=== PATIENT | female | born 1990 | race Caucasian/White ===

== ENCOUNTER → 2016-11-23 | Outpatient (CLI) | payer BC ==
[2016-11-23 13:38] LABS: URINE APPEARANCE CLEAR (CLEAR); URINE BILIRUBIN NEG (NEG); URINE COLOR YELLOW; URINE EPITHELIAL CELL AUTO >30 /lpf (0-5); URINE NITRITE NEG (NEG); URINE PH 5.5 (4.5-7.5); UROBILINOGEN NEG (NEG)
[2016-11-23 13:41] LABS: MANUAL MICROSCOPIC REQUIRED? NO; REVIEW REQ? NO
== END | disposition home or self-care (01) ==
LOC: C.LABSPEC 12:42
PROVIDERS: ATTEND Obstetrics & Gynecology
DX: Z34.91 Encounter for supervision of normal pregnancy, unspecified, first trimester (principal)

== ENCOUNTER → 2016-11-30 | Outpatient (CLI) | payer BC ==
[2016-11-30 14:23] LABS: BASO % 0.1 %; BASO ABS # 0.01 K/uL (0-0.2); COMPLETE YES; EOS % 0.3 %; HEMATOCRIT 39.4 % (37-47); IG% 0.3 %; LYMPH % 23.2 %; LYMPH ABS # 2.13 K/uL (1.2-3.4); MEAN CELL VOLUME 91.2 fL (80-100); MEAN CORPUSCULAR HEMOGLOBIN 32.4 pg (25-34); MEAN CORPUSCULAR HGB CONC 35.5 g/dl (32-36); MEAN PLATELET VOLUME 10.3 fL (7.4-10.4); MONO % 5.7 %; NEUT % 70.4 %; PLATELET COUNT 219 K/uL (130-400); RED BLOOD COUNT 4.32 M/uL (4.2-5.4); WHITE BLOOD COUNT 9.17 K/uL (4.8-10.8)
== END | disposition home or self-care (01) ==
LOC: C.LAB1850 12:52
PROVIDERS: ATTEND Obstetrics & Gynecology
DX: Z34.91 Encounter for supervision of normal pregnancy, unspecified, first trimester (principal)

== ENCOUNTER → 2016-11-30 | Outpatient (CLI) | payer BC ==
[2016-12-02 15:16] LABS: CHLAMYDIA TRACH RNA*** NOT DETECTED (NOT DETECTED); GC (NEIS GONORRHOEAE)RNA** NOT DETECTED (NOT DETECTED)
== END | disposition home or self-care (01) ==
LOC: C.LABSPEC 14:57
PROVIDERS: ATTEND Obstetrics & Gynecology
DX: Z34.91 Encounter for supervision of normal pregnancy, unspecified, first trimester (principal)

== ENCOUNTER → 2016-12-21 | Outpatient (CLI) | payer BC | LOC: C.LAB1850 11:04 | PROVIDERS: ATTEND Obstetrics & Gynecology | DX: Z29.13 Encounter for prophylactic Rho(D) immune globulin (principal); O46.90 Antepartum hemorrhage, unspecified, unspecified trimester; Z3A.00 Weeks of gestation of pregnancy not specified ==

== ENCOUNTER → 2017-01-21 | Outpatient (CLI) | payer BC ==
[2017-01-21 18:33] LABS: GTGD 50 Grams
[2017-01-25 15:14] LABS: AFP CONCENTRATION 28.9 NG/ML; AFP MULTIPLE OF MEDIAN 0.84; AFPTS GESTATIONAL AGE 16.6 WEEKS; AFPTS INSULIN DEP DIABETIC? NO; AFPTS MATERNAL WT 154 LBS; ALPHA-FETOPROTEIN RACE CAUCASIAN=W; ESTRIOL MULTIPLE OF MEDIAN 0.98; HISTORY OF NTD NO; INHIBIN A 153 PG/ML; INHIBIN A MOM 0.93; REPEAT SAMPLE? NO
== END | disposition home or self-care (01) ==
LOC: C.LAB1850 15:49
PROVIDERS: ATTEND Obstetrics & Gynecology
DX: Z34.91 Encounter for supervision of normal pregnancy, unspecified, first trimester (principal)

== ENCOUNTER → 2017-04-15 | Outpatient (CLI) | payer BC ==
[2017-04-15 18:27] LABS: URINE APPEARANCE CLEAR (CLEAR); URINE BILIRUBIN NEG (NEG); URINE COLOR YELLOW; URINE EPITHELIAL CELL AUTO >30 /lpf (0-5); URINE NITRITE NEG (NEG); URINE SPECIFIC GRAVITY 1.023 (1.000-1.030); UROBILINOGEN NEG (NEG)
[2017-04-15 18:29] LABS: MANUAL MICROSCOPIC REQUIRED? NO; REVIEW REQ? NO
== END | disposition home or self-care (01) ==
LOC: C.LABSPEC 17:43
PROVIDERS: ATTEND Obstetrics & Gynecology
DX: Z34.02 Encounter for supervision of normal first pregnancy, second trimester (principal); Z3A.00 Weeks of gestation of pregnancy not specified

== ENCOUNTER → 2017-04-16 | Outpatient (CLI) | payer BC ==
[2017-04-16 16:41] LABS: HEMATOCRIT 34.3 % (37-47)
[2017-04-16 17:07] LABS: GTGD 50 Grams
== END | disposition home or self-care (01) ==
LOC: C.LAB1850 14:15
PROVIDERS: ATTEND Obstetrics & Gynecology
DX: Z34.02 Encounter for supervision of normal first pregnancy, second trimester (principal); Z3A.00 Weeks of gestation of pregnancy not specified

== ENCOUNTER → 2017-06-09 | Outpatient (CLI) | payer BC | END | disposition home or self-care (01) | LOC: C.LABSPEC 17:34 | PROVIDERS: ATTEND Obstetrics & Gynecology | DX: Z34.93 Encounter for supervision of normal pregnancy, unspecified, third trimester (principal) ==

== ENCOUNTER 2017-07-10 05:54 | Inpatient (IN) | payer BC, OTHER ==
[~2017-07-10] VITALS: Ht 162.6 cm; Wt 82.0 kg
[2017-07-10 06:51] LABS: HEMATOCRIT 34.2 % (37-47); MEAN CORPUSCULAR HEMOGLOBIN 33.3 pg (25-34); MEAN CORPUSCULAR HGB CONC 35.1 g/dl (32-36); MEAN PLATELET VOLUME 10.6 fL (7.4-10.4); PLATELET COUNT 135 K/uL (130-400); RED CELL DISTRIBUTION WIDTH CV 13.8 % (11.5-14.5); RED CELL DISTRIBUTION WIDTH SD 47.9 fL (36.4-46.3); WHITE BLOOD COUNT 12.66 K/uL (4.8-10.8)
[2017-07-10] MEDS ORDERED: PRENTAB26 PO (06:54)
[2017-07-10 06:56] VITALS: Ht 162.6 cm; Wt 82.0 kg
[2017-07-10] MEDS ORDERED: COUGH DROP (SUGAR FREE) LOZ 24 LOZ/1 BOX ONE (07:59)
[2017-07-10] MEDS ORDERED: NURSING VERBAL MED ORDER ONE (08:00)
[2017-07-10] MEDS ORDERED: COUGH DROP (SUGAR FREE) LOZ 24 LOZ/1 BOX PO PRN (08:30)
[2017-07-10] MEDS ORDERED: BUTORPHANOL TARTRATE 1 MG/ML VIAL IV ONE (08:45)
[2017-07-10] MEDS ORDERED: EpHEDrine SULFATE INJ 50 MG/ML AMP ONE (09:17)
[2017-07-10] MEDS ORDERED: FENTANYL CITRATE INJ 50 MCG/1 ML 2 ML VIAL ONE (09:17)
[2017-07-10] MEDS ORDERED: FENTANYL 2MCG/ML ROPIV 1.25MG/ML 100ML BAG EPI ONE (09:17)
[2017-07-10] MEDS ORDERED: BUPIVACAINE 0.25% 30 ML VIAL ONE (09:17)
[2017-07-10] MEDS: LACTATED RINGER'S 1000ML 1,000 ML IV SCH ×4 (10:00→23:40)
[2017-07-10] MEDS ORDERED: CITRIC ACID/SODIUM CITRATE 15 ML UDC ONE (10:30)
[2017-07-10] MEDS ORDERED: NALOXONE HCL INJ 1 MG in SODIUM CHLORIDE 0.9% 1000ML 1,000 ML IV PRN (10:51)
[2017-07-10] MEDS ORDERED: LACTATED RINGER'S 1000ML 500 ML IV PRN ×2 (10:51→17:29)
[2017-07-10] MEDS ORDERED: DiphenhydrAMINE HCL 50 MG/ML VIAL IV PRN (11:00)
[2017-07-10] MEDS ORDERED: ONDANSETRON INJ 2 MG/ML 2 ML VIAL IV PRN (11:00)
[2017-07-10] MEDS ORDERED: EpHEDrine SULFATE INJ 50 MG/ML AMP IV PRN (11:00)
[2017-07-10] MEDS ORDERED: NALOXONE HCL INJ 0.4 MG/1 ML VIAL/CARP IV PRN (11:00)
[2017-07-10] MEDS ORDERED: NALBUPHINE HCL INJ 10 MG/ML 1ML AMP IV PRN (11:00)
[2017-07-10] MEDS ORDERED: LACTATED RINGER'S 1000ML 1,000 ML IV PRN (11:33)
[2017-07-10] MEDS ORDERED: OXYTOCIN 30 UNITS/500ML NSS IV PRN (17:30)
[2017-07-10] MEDS: FENTANYL 2MCG/ML ROPIV 1.25MG/ML 100ML BAG EPI PRN ×2 (18:37→18:59)
[2017-07-11] MEDS: FENTANYL 2MCG/ML ROPIV 1.25MG/ML 100ML BAG EPI PRN (00:42)
[2017-07-11] MEDS: LACTATED RINGER'S 1000ML 1,000 ML IV SCH (03:49)
[2017-07-11] MEDS ORDERED: LANOLIN OINT EXT PRN (06:15)
[2017-07-11] MEDS ORDERED: SUPERCREAM 0.870 % 15GM JAR EXT PRN (06:15)
[2017-07-11] MEDS ORDERED: BENZOCAINE 20% AER SPR 82.5 GM CAN EXT PRN (06:15)
[2017-07-11] MEDS ORDERED: OXYCODONE/ACETAMINOPHEN 5-325 TAB PO PRN (06:15)
[2017-07-11] MEDS ORDERED: HYDROCORTISONE ACETATE 25 MG SUPP PR PRN (06:15)
[2017-07-11] MEDS ORDERED: OXYTOCIN 30 UNITS/500ML NSS IV PRN (06:15)
--- NOTE | 2017-07-11 08:33 | Anesthesia Procedure Note ---
Anesthesia Epidural Removal Nt Date & Time Jul 11, 2017 at 08:33 Vital Signs Pain Intensity: 0.0 Notes Mental Status: alert / awake / arousable, participated in evaluation Nausea / Vomiting: adequately controlled Pain: adequately controlled Airway Patency, RR, SpO2: stable & adequate BP & HR: stable & adequate Hydration State: stable & adequate Neuraxial Anesthesia: was administered Anesthetic Complications: no major complications apparent, pt satisfied with anesthetic care Epidural: removed without complications, with tip intact
[2017-07-11 09:15] VITALS: BP 113/75; PULSE 90; TEMP 36.9
[2017-07-11] MEDS: DOCUSATE SODIUM 100 MG CAP PO SCH ×2 (09:34→19:52)
[2017-07-11] MEDS: IBUPROFEN 600 MG TAB PO PRN ×2 (09:34→16:53)
--- NOTE | 2017-07-11 10:00 | NUR ---
A; Patient transferred to Level II nursery to see . Patient was transferred via wheelchair.
--- NOTE | 2017-07-11 12:15 | NUR ---
A; Patient was verbally educated on pumping; breast pump and breast pumping kit placed in room. Patient educated to ring after she has finsihed her lunch tray and we will set up pump to start pumping. Patient verbalized understanding and will ring when she is ready to pump.
[2017-07-11 12:34] VITALS: BP 118/77; PULSE 79; TEMP 36.5
--- NOTE | 2017-07-11 13:10 | NUR ---
A; Patient has not rang out; once nursing went back to check hourly rounding patient was found to be sleeping and not interested in pumping at this time.
[2017-07-11 16:50] VITALS: BP 125/74; PULSE 79; TEMP 36.8
[2017-07-11 20:00] VITALS: BP 111/67; PULSE 87; TEMP 36.5
[2017-07-12 00:05] VITALS: BP 108/69; PULSE 82; TEMP 36.7
[2017-07-12] MEDS: IBUPROFEN 600 MG TAB PO PRN ×3 (00:12→14:33)
[2017-07-12 04:15] VITALS: BP 107/72; PULSE 81; TEMP 36.6
[2017-07-12 06:24] LABS: HEMOGLOBIN 8.9 g/dL (12.0-16.0)
[2017-07-12 07:26] VITALS: BP 113/77; PULSE 65; TEMP 36.7
--- NOTE | 2017-07-12 08:20 | Discharge Instructions ---
Discharge Instructions Date of Service Jul 12, 2017. Admission Reason for Admission: LABOR Discharge Discharge Diagnosis / Problem: vaginal delivery Discharge Goals Goal(s): Routine recovery after delivery Medications Continue Dispensed Medications: supercream, dermaplast, tucks Activity Recommendations Activity Limitations: per Instructions/Follow-up section . Instructions / Follow-Up Instructions / Follow-Up ACTIVITY RECOMMENDATIONS: * Gradual return to full activity over the next 2-3 weeks. * No lifting - nothing heavier than baby over the next 2-3 weeks. * Do not engage in vigorous exercise, sexual activity or sports until cleared by your physician. * Do not drive or operate any motorized equipment until cleared by your physician. * You may shower/bathe daily. MEDICATIONS: For discomfort or pain, you may use Acetaminophen (Tylenol), Ibuprofen (Advil), or Naproxen (Aleve) following the package directions. For constipation you may use Colace following the package directions. BREAST CARE: If you are not breast feeding: * Wear a supportive bra 24 hours a day for one to two weeks. * Avoid stimulating your breasts and nipples as much as possible during the first few weeks after delivery. * When taking a shower, have the warm water hit your back, not breasts. * When your breasts feel full, apply ice packs. Usually three to four times a day helps ease the discomfort. * Take a mild pain medication (Tylenol / Motrin) when you are uncomfortable. If breast feeding: * Use breast milk to lubricate nipples. Lansinoh cream may be used for sore nipples. You do not need to remove cream prior to breast feeding. If using a different brand of cream, check the label for directions regarding removal of cream prior to nursing. * Wear a supportive bra. * If having problems with breasts or breast feeding, call a automotive internet sales consultant or your health care provider. EPISIOTOMY CARE: After delivery, if you have an episiotomy (stitches), the following steps will ease discomfort and aid healing. * For the first 24 hours after delivery, place ice packs next to your episiotomy to help reduce swelling. * After the first 24 hour-period, sitz baths, either portable or in the tub, are suggested. A shower with a shower arm sprayed over the episiotomy may be comforting. * Hayley care should be done after each voiding and bowel movement. Squirt warm water from a plastic bottle over the perineum (region of the body between the anus and urinary opening) and pat dry. * Use Dermoplast to ease discomfort. Shake container. [place] directly over the episiotomy. Place a Tucks on a clean sanitary pad next to your episiotomy. SPECIAL CARE INSTRUCTIONS: When you are discharged from the hospital, it is important for you to follow the instructions listed below: * During the first week at home, you should be able to care for yourself and your baby. In addition, the usual light household activities are encouraged. * Limit your activities to the way you feel. Do not try to clean the house or move furniture. Be sensible. * If you actively engage in sports and have done so up until the time of your delivery, you may resume these activities as soon as you feel able. This may take up to one month or even longer. Use good judgment. * Continue to take your vitamins for at least six weeks after the of your baby. * Your diet need not be limited unless you were on a special diet before your delivery. Breast-feeding mothers need around 2500 calories per day and at least 64-80 ounces of fluid per day (8 to 10 glasses). * You should eat foods from the four major food groups. Crash diets or fad diets are to be avoided. Eating lean meats, fresh fruits and vegetables, low-fat dairy products, high fiber foods and a regular exercise program, will help you get back to your pre- weight without putting your health at risk. * Constipation is sometimes a problem after delivery. Take a mild laxative as needed. If breast feeding, Milk of Magnesia is acceptable to use. You may use a suppository or Fleets enema if no episiotomy. * A daily shower or tub bath is suggested. Be sure to thoroughly and gently dry the perineum. * A bloody vaginal discharge will usually continue until around four weeks post . A small amount of bleeding may continue for as long as six weeks. Vaginal discharge changes from the bright red bleeding after delivery to pink then brownish and finally yellowish-pink before becoming white and disappearing. * Bleeding may increase with activity. Your first period may come in 4-8 weeks. If you are breast feeding, your period may be delayed even longer. * [place] (sex) can begin whenever both you and your partner feel comfortable and do not have any form of genital infection. It is recommended that you wait at least six weeks for internal and external healing to occur. If you have questions, please talk to your health care practitioner. A condom should be used to prevent infection and . * Foreplay, gentle intercourse and lubrication is very important the first several times to prevent pain. A water-based lubricant such as K-Y jelly or Astroglide may be used. * If you have RH negative blood and your baby is RH positive, you will receive RHOGAM by injection prior to discharge. The nurse will give you a card to keep with you that has the date and place that you received RHOGAM after delivery. * During your care, you had a Rubella screen done to check for the presence of rubella antibodies in your blood. If your test was negative, you will receive a Rubella vaccine prior to discharge. This vaccine may cause a fever, soreness at the injection site and flu-like symptoms. If these symptoms persist, notify your health care practitioner. is not advised for one month after a Rubella vaccine. * Verbalizes understanding of car seat law as reviewed with patient nursing. * Car Seat hand-out given and reviewed with patient by nursing. * Shaken baby information reviewed with patient by nursing. Call you doctor if: * Heavy bleeding (saturating several pads an hour) or passing clots the size of your fist. * A fever >101 degrees F (38.3 degrees C) on two occasions four hours apart and /or chills. * Unusual pain in the pelvic or vaginal areas. * "Baby Blues" lasting longer than two weeks. If you have any questions or concerns, call your health care practitioner at . FOLLOW UP VISIT: * Please call the office at to schedule a 6 week examination. It is important you keep this appointment. It is important for you to make arrangements for either yearly or twice yearly check-ups thereafter. Current Hospital Diet Patient's current hospital diet: Regular OB Diet Discharge Diet Recommended Diet: Regular OB Diet Pending Studies Studies pending at discharge: no Medical Emergencies . Who to Call and When: Medical Emergencies: If at any time you feel your situation is an emergency, please call 911 immediately. . Non-Emergent Contact Non-Emergency issues call your: Moss Picker . . "Provider Documentation" section prepared by Gopal Roldan. . VTE Core Measure Inpt VTE Proph given/why not?: Treatment not indicated
--- NOTE | 2017-07-12 08:28 | OB/GYN Progress Note ---
AUTOMATION AND CONTROLS SUPERVISOR Progress Note Date of Service Jul 12, 2017. Subjective conversation w/ patient, physical exam, chart review, lab review Ambulation: ambulating normally Voiding: no voiding problems Passing Gas: Yes Diet Tolerance: Regular Diet Lochia: Moderate Feeding Type: Breast Feeding Pain: cramping with feeding Review of Systems Constitutional: No fever, No chills Respiratory: No cough, No shortness of breath Cardiac: No chest pain, No palpitations Abdomen: No pain, No nausea, No vomiting Female : No dysuria Objective Vital Signs Date Time Temp Pulse Resp B/P (MAP) Pulse Ox O2 Delivery O2 Flow Rate FiO2 07/12/17 07:26 36.7 65 16 113/77 (89) Room Air 07/12/17 04:15 36.6 81 20 107/72 (84) Room Air 07/12/17 00:05 Room Air 07/12/17 00:05 36.7 82 18 108/69 (82) Room Air 07/11/17 20:00 36.5 87 18 111/67 (82) Room Air 07/11/17 16:50 Room Air 07/11/17 16:50 36.8 79 20 125/74 (91) Room Air 07/11/17 12:34 36.5 79 16 118/77 (91) 07/11/17 09:15 Room Air 07/11/17 09:15 36.9 90 16 113/75 (88) Physical Exam General Appearance: WELL-APPEARING, WD/WN, NO APPARENT DISTRESS Respiratory/Chest: lungs clear, normal breath sounds Cardiovascular: regular rate, rhythm, no murmur Abdomen: non tender Fundus: Firm, Relation to Umbilicus (1 digit below umbilicus ) Extremities: no calf tenderness Laboratory Results Last 24 Hours Test 07/12/17 05:46 Hemoglobin 8.9 g/dL Hematocrit 26.0 % Assessment and Plan Post- Day Number: 2 Continue Routine Care: 27 yo female delivered on 07/11 5:26 GBS-/O-/RI. Doing well clinically and ready for discharge. Awaiting dispo of baby from peds. Reviewed vitals, stable and WNL. Plan; 1.Continue pp care; encourage ambulation, control pain, monitor bleeding, support Resident Physician Supervision Note: I was present with Dr. Roldan during the history and exam. I discussed the case with the resident and agree with the findings and plan as documented in the note. Any exceptions or clarifications are listed here: PPD#1, doing well. Baby with some difficulties with breathing - will plan to keep patient until tomorrow due to baby's status. Documented By: Meg Hall
[2017-07-12] MEDS: DOCUSATE SODIUM 100 MG CAP PO SCH ×2 (09:17→20:12)
[2017-07-12 16:00] VITALS: BP 120/57; PULSE 73; TEMP 36.7; O2SAT 97
[2017-07-12] MEDS ORDERED: BISACODYL 5 MG TABEC PO SCH (20:00)
--- NOTE | 2017-07-12 20:22 | NUR ---
Met with parents and at 1945 introducing self and offering breast feeding services (hands on as well as education/answering questions). Mother stated she would like to have the latch assessed and will use her call domínguez to assistance with next feeding. Fany Vora RN, CLC
--- NOTE | 2017-07-12 21:45 | NUR ---
Met with parents and infant at 2220 for assistance with breast feeding. Parents described the after senerio and stated they were unable to do skin to skin or breast feed first several hours post because of infant complications following delivery. During my visit, the infant was in deep sleep. Both parents comfirmed previous attempts at breast feeding have not been successful, ( has been sleepy). They were recommended to start using the nipple shield because was not latching well (very sleepy) and mom stated her rt. nipple was inverted. Mom was also pumping and had at least 14cc of transitional milk in 2 syringes (she is one pump before). After listening to both parents describe their experiences and their 's first few hours post delivery and observing their in a deep sleep, suggested as much skin to skin (including father if mom is not available) as possible. Provided a warm L&D blanket. Reviewed sleep/awake states and optimal times to initiate feedings. Encouraged parents they are doing everything right. Suggested they provide patience with their and with skin to skin, let her start to awaken, and self-initiate , (as if starting over). Parents agreed and stated they will continue to offer breast and pump and finger feed breast milk and provide skin to skin maximum possible and observe for awakening and feeding cues. Fany Vora RN, CLC
[2017-07-13 00:50] VITALS: BP 113/76; PULSE 64; TEMP 36.7
[2017-07-13] MEDS: IBUPROFEN 600 MG TAB PO PRN (00:55)
--- NOTE | 2017-07-13 06:01 | OB/GYN Progress Note ---
SUPERINTENDENT TRANSPORTATION Progress Note Date of Service Jul 13, 2017. Subjective conversation w/ patient, physical exam, chart review, lab review Ambulation: ambulating normally Voiding: no voiding problems Passing Gas: Yes Diet Tolerance: Regular Diet Lochia: Moderate Feeding Type: Breast Feeding Pain: moderate pain with feeding Review of Systems Constitutional: No fever, No chills Respiratory: No shortness of breath Cardiac: No chest pain, No palpitations Abdomen: No pain, No nausea, No vomiting Female : No dysuria Objective Vital Signs Date Time Temp Pulse Resp B/P (MAP) Pulse Ox O2 Delivery O2 Flow Rate FiO2 07/13/17 00:50 36.7 64 18 113/76 (88) Room Air 07/13/17 00:50 Room Air 07/12/17 16:00 36.7 73 18 120/57 (78) 97 Room Air 07/12/17 16:00 97 Room Air 07/12/17 07:26 36.7 65 16 113/77 (89) Room Air Physical Exam General Appearance: WELL-APPEARING, WD/WN, NO APPARENT DISTRESS Respiratory/Chest: lungs clear, normal breath sounds Cardiovascular: regular rate, rhythm, no murmur Abdomen: non tender Fundus: Firm Extremities: normal inspection, no pedal edema, no calf tenderness Assessment and Plan Post- Day Number: 2 Continue Routine Care: 27 yo female delivered on 07/11 5:26 GBS-/O-/RI. Doing well clinically and ready for discharge. Reviewed vitals, stable and WNL. Plan; 1.Continue pp care; encourage ambulation, control pain, monitor bleeding, support 2.Provided DC instructions to mother 3.Awaiting dispo of baby from peds, otherwise patient is ready to be discharged Resident Physician Supervision Note: I was present with Dr. Alegre during the history and exam. I discussed the case with the resident and agree with the findings and plan as documented in the note. Any exceptions or clarifications are listed here: [None] Documented By: Ritchie Barney
[2017-07-13] MEDS ORDERED: BISACODYL 10 MG SUPP PR PRN (07:00)
--- NOTE | 2017-07-13 08:01 | DELIVERY SUMMARY ---
DATE OF OPERATION: 07/11/2017 PREDELIVERY DIAGNOSES: 1. A 27-year-old at 41 weeks and 0 day. 2. Spontaneous rupture of membranes. 3. RH negative status. POSTDELIVERY DIAGNOSES: Same. PROCEDURES: Spontaneous vaginal delivery and repair of second-degree perineal laceration. FINDINGS: Viable female with Apgars of 7 and 8. Weight pending. Please see nursery records. Nuchal cord x1. ESTIMATED BLOOD LOSS: 300 mL. DESCRIPTION OF DELIVERY: The patient progressed to complete with epidural anesthesia. Only then allowed the baby to labor down until the patient felt the urge to push. She then pushed for approximately 3 hours and then spontaneously vaginally delivered a viable female from the cephalic presentation. The baby delivered in the left occiput anterior position. Head delivered followed by nuchal cord x1. This was reduced. The anterior shoulder was delivered followed by the posterior shoulder followed by the body. Baby was placed on mother's abdomen, where she was stimulated and dried. The cord was doubly clamped and cut. The baby was immediately handed off to the awaiting pediatrics team, who continued the stimulation. A spontaneous cry was heard. A cord segment was obtained for gases. Cord blood was obtained. Placenta then delivered spontaneously intact with a 3-vessel cord. The uterus became firm. Pitocin was given. The uterus and vagina were swept of all clots and debris. The cervix, vagina and perineum were inspected. A second-degree perineal laceration was noted and repaired in standard fashion with 3-0 Vicryl and additional [id number] sutures of 3-0 Vicryl were used to obtain excellent hemostasis as well as interrupted sutures of 4-0 Vicryl to reapproximate a torn hymenal ring. At the conclusion of the delivery, sponge, instruments and needle counts were correct x2. The mother and baby tolerated the delivery well and the mother recovered in the room in stable and good condition and the baby was taken to the nursery for further evaluation. I attest to the content of the Intraoperative Record and any orders documented therein. Any exception s are noted below.
[2017-07-13] MEDS: DOCUSATE SODIUM 100 MG CAP PO SCH (08:33)
[2017-07-13 12:15] VITALS: BP 138/87; PULSE 81; TEMP 36.6; O2SAT 100
[2017-07-13 13:10] VITALS: BP_DIAS 87; PULSE 81; TEMP 36.6
--- NOTE | 2017-07-13 15:10 | NUR ---
Patient verbalized understanding of discharge instructions. Patient down to lobby in wheelchair with and .
== END 2017-07-13 15:10 | disposition home or self-care (01) | DRG 775 ==
LOC: C.OPB 05:54 → C.LD 05:54 → C.OPB 06:30 → C.OBG 07-11 09:24
PROVIDERS: ADMIT Obstetrics & Gynecology; ATTEND Obstetrics & Gynecology
PROC: 10E0XZZ Delivery of Products of Conception, External Approach (ICD-10-PCS; principal; 2017-07-11)
PROC: 0KQM0ZZ Repair Perineum Muscle, Open Approach (ICD-10-PCS; principal; 2017-07-11)
DX: O70.1 Second degree perineal laceration during delivery (principal); O69.81X0 Labor and delivery complicated by cord around neck, without compression, not applicable or unspecified; O76 Abnormality in fetal heart rate and rhythm complicating labor and delivery; Z3A.40 40 weeks gestation of pregnancy; Z37.0 Single live birth

== ENCOUNTER → 2017-08-17 | Outpatient (CLI) | payer OTHER ==
[~2017-08-17] MED LIST: PRENTAB26 PO
== END | disposition home or self-care (01) ==
LOC: C.PAPS 08:41
PROVIDERS: ATTEND Obstetrics & Gynecology
DX: Z39.2 Encounter for routine postpartum follow-up (principal)

== ENCOUNTER 2020-03-08 11:28 | Inpatient (IN) ==
--- NOTE | 2020-03-08 11:45 | History & Physical Report ---
Date of Service March 08, 2020 Assessment & Plan (1) Post-dates : Abimael Johnson is a 30 y/o who presents for postdates labor induction. O neg. Ab neg. GBS neg. Rubella immune. Labor induction for postdates Vitals reviewed, stable. labs reviewed. Mild leukocytosis 11.11. H/H 13/37.2. Plt 132. - patient doing well - was on IUGR protocol 20-36 wks, but taken off of it. No longer IUGR as of 01/30/20. Otherwise, course benign - LR 125 ml/hr plan: induction via pitocin Rh negative - received rhogam on 12/06/19 plan: may potentially need rhogam depending on baby's blood type Hx Shalom's and non-toxic multinodular goiter - TSH 1.0, wnl on 08/01/19. asymptomatic, not on medications Admission and Anticipated Discharge Date Admission Date: March 08, 2020 History of Present Illness Primary Care Provider: NO PCP Abimael Johnson is a 30 y/o female currently at 41w2d WGA with an SUSAN 02/28/20 as determined by (LMP (certain)) who is here for planned induction for postdate . Her was complicated by IUGR protocol 20-36 weeks, was then taken off of it. No current pain. -N/V, dysuria, low back pain, bleeding, NICOLE, dizziness, vision changes, constipation, diarrhea, calf tenderness. No cough, sorethroat, loss of taste/smell, diarrhea. No UTIs. Last BM this AM. Hx of Shalom's and nontoxic multinodular goiter, denies recent problems, had normal TSH 08/01/19. Not on thyroid medications. No alcohol, tobacco, drug use during . - contractions; - movement; - fluid loss; - bloody show Had regular appointments with OB. Labs: 08/01/19 Blood type: O negative Antibody screen: negative H (today) Hct: 37.2 (today) WBC: 11.11H (today) Plt: 132 (today) Rubella: immune VDRL/RPR: nonreactive Gonorrhea: not detected Chlamydia: not detected HIV: neg HbSAg: neg GBS: negative glucose 1 hour 50 gm load 81 mg/dl Covid: 02/15/20, 02/27/20 negative Other screens: panorama negative Allergies Allergy/AdvReac Type Severity Reaction Status Date / Time No Known Drug Allergies Allergy none Verified 03/08/20 11:30 Home Medications Home Medications Medication Instructions Recorded Confirmed Type prenat.vits,efraín,jix-[id number] 1 tab PO DAILY 07/26/19 03/08/20 History Patient History Medical History (Updated 03/08/20 @ 13:58 by Pablo Burrell MD) Encounter for anatomic survey History of chicken pox History of Shalom thyroiditis Non-toxic multinodular goiter Vaginal ulcer Surgical History S/P tooth extraction Family History Grandmother (Maternal) Diabetes Grandfather (Maternal) Amyotrophic lateral sclerosis Aunt Multiple sclerosis paternal Other Esophageal reflux Social History Smoking Status: Never smoker Hx Alcohol Use: No Hx Substance Use: No Preferred Language: Citizen Of [place] Communication Ability: Effective Beliefs That Will Affect Care: None marital status: marital status details: Remy Johnson (31) [phone] Current Living Situation: Spouse Current Living Situation Comment: spouse and daughter current occupational status: employed 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 Denies breast pain. Denies dysuria. Denies headache or changes in vision. Denies nausea/vomiting. Denies numbness, tingling, weakness. Denies cold or heat intolerance Physical Exam Physical Exam: General: Alert, oriented. No acute distress. Cardiac: Regular rate and rhythm, no murmurs/rubs/gallops. Radial and DP pulses 2+ bilaterally. Respiratory: Clear to auscultation bilaterally, no wheezes/rales/rhonchi. No i ncreased work of breathing. No respiratory distress. Abdomen: Gravid; +FHTs Cervix: Dilation 2-3 cm. Effacement 50% -2 station. Soft. Posterior. EFW: upper 7s kg. Lower Extremities: No lower extremity edema or swelling. No deep calf pain. Jeff's negative bilaterally. Monitoring External Monitor FHT at 11:40. category 1. baseline 135. moderate variability. +Accelerations. No decelerations. No contractions. Resident Activity Tracking Resident Involvement: Resident Care Provided Care Provided: OB Delivery
[2020-03-08] MEDS ORDERED: OXYTOCIN 30 UNITS/500 ML BAG IV PRN ×3 (12:02→20:16)
[2020-03-08 12:31] LABS: Hematocrit (blood only) 37.2 % (37-47); Mean Corpuscular Volume 97.4 fL (80-100); Mean Platelet Volume 10.7 fL (7.4-10.4); Platelet Count 132 K/uL (130-400); RDW Coefficient of Variation 13.6 % (11.5-14.5); RDW Standard Deviation 48.1 fL (36.4-46.3); Red Blood Count 3.82 M/uL (4.2-5.4); White Blood Count 11.11 K/uL (4.8-10.8)
[2020-03-08] MEDS: LACTATED RINGER'S 1,000 ML IV PRN ×2 (12:32→18:14)
[2020-03-08 12:48] LABS: Mean Corpuscular Hgb Conc 34.9 g/dL (32-36)
--- NOTE | 2020-03-08 15:41 | Labor Progress Brief Note ---
Date of Service March 08, 2020 Subjective Reason For Note: Routine Evaluation Contractions are mild-moderate, rated a 6/10. Assessment & Plan (1) Post-dates : Abimael Johnson is a 30 y/o who presents for postdates labor induction. O neg. Ab neg. GBS neg. Rubella immune. Labor induction for postdates Vitals reviewed, stable. labs reviewed. Mild leukocytosis 11.11. H/H 13/37.2. Plt 132. - patient doing well - was on IUGR protocol 20-36 wks, but taken off of it. No longer IUGR as of 01/30/20. Otherwise, course benign - LR 125 ml/hr - AROM at 1535, clear fluid plan: continue induction via pitocin Rh negative - received rhogam on 12/06/19 plan: may potentially need rhogam depending on baby's blood type Hx Shalom's and non-toxic multinodular goiter - TSH 1.0, wnl on 08/01/19. asymptomatic, not on medications Admission and Anticipated Discharge Date Admission Date: March 08, 2020 Physical Exam Genitourinary: Manual OB Exam: + amniotic fluid (AROM at 1535. Ruptured. Clear fluid. Performed by Dr. Davis.) OB Exam Monitor Tracing: + external FHT monitor used, + external uterine monitor used, + category I and + normal FHT variability; no early decelerations present and no late decelerations present 3-4 cm dilated. 75% effaced. -2 station. Results & Data ([facility]) Vital Signs (Past 12 Hours) Vital Signs Temp Pulse Resp BP 03/08/20 15:15 71 110/62 03/08/20 14:54 36.6 C 22 03/08/20 13:41 77 123/66 03/08/20 12:37 76 102/58 L 03/08/20 11:45 36.9 C 18 Supervising Physician Co-Signing Physician Notes Patient evaluated with resident and agree with the above findings and plan
[2020-03-08] MEDS ORDERED: fentaNYL citrate 100 MCG/2 ML VIAL ONE (18:05)
[2020-03-08] MEDS ORDERED: ePHEDrine sulfate 50 MG/ML AMP ONE (18:05)
[2020-03-08] MEDS ORDERED: BUPIVACAINE 0.25% 30 ML VIAL ONE (18:05)
[2020-03-08] MEDS ORDERED: fentaNYL 2MCG/ML ROPIV 1.25MG/ML 100 ML BAG EPI ONE (18:06)
[2020-03-08] MEDS ORDERED: ACETAMINOPHEN 325 MG TAB PO PRN (20:16)
[2020-03-08] MEDS ORDERED: BENZOCAINE 20% AER SPR 82.5 GM CAN EXT PRN (20:16)
[2020-03-08] MEDS ORDERED: HYDROCORTISONE ACETATE 25 MG SUPP PR PRN (20:16)
[2020-03-08] MEDS ORDERED: bisacodyL 10 MG SUPP PR PRN (20:16)
[2020-03-08] MEDS ORDERED: DIPHTHERIA/TETANUS/PERTUSSIS 0.5 ML SYR/VIAL IM ONE (20:16)
[2020-03-08] MEDS ORDERED: SUPERCREAM 0.870% 15 GM JAR EXT PRN (20:16)
[2020-03-08] MEDS ORDERED: BENZOCAINE 20% AER SPR 82.5 GM CAN EXT ONE (20:20)
[2020-03-08 20:22] LABS: Base Excess Cord Arterial Bld -2.3 mEq/L (-9-1.8); CO2 Cord Arterial Blood 44 mmHg (39.1-73.5); HCO3 Cord Arterial Blood 24 mmol/L (19.7-28.5); PO2 Cord Arterial Blood 17 mmHg (4.1-31.7); pH Cord Arterial Blood 7.35 (7.1-7.38)
[2020-03-08 20:23] LABS: Base Excess Cord Venous Blood -2.7 mEq/L (-7.7-1.9); Cord Venous Blood HCO3 19 mmol/L (18.4-26.8); Cord Venous Blood PCO2 27 mmHg (30.4-57.2); Cord Venous Blood PO2 30 mmHg (14.1-43.3); Cord Venous Blood pH 7.48 (7.20-7.44); Oxygen Sat Cord Arterial Blood < 60.0 % (<60)
[2020-03-08] MEDS: IBUPROFEN 600 MG TAB PO PRN (21:01)
[2020-03-08] MEDS: DOCUSATE SODIUM 100 MG CAP PO SCH (21:33)
[2020-03-09 06:03] LABS: Hematocrit (blood only) 33.6 % (37-47); Hemoglobin 11.4 g/dL (12.0-16.0)
--- NOTE | 2020-03-09 06:41 | Obstetrical Progress Note ---
Date of Service <Pablo Burrell MD - Last Filed: 03/09/20 07:36> March 09, 2020 Assessment & Plan <Pablo Burrell MD - Last Filed: 03/09/20 07:36> (1) Post-dates : Abimael Johnson is a 30 y/o who is s/p induced at 41w2d, PPD 2. O neg. Ab neg. GBS neg. Rubella immune. s/p Vitals reviewed, stable. labs reviewed. H/H 11.4/33.6. Hb 13->11.4 - I/O: 2.5L in. 2.25L out via voiding. - patient doing well plan: routine care. encourage ambulation. potential dispo home today. Rh negative - received rhogam on 12/06/19 - baby is O neg, MICHELLE neg. plan: no further action at this time Hx Shalom's and non-toxic multinodular goiter - TSH 1.0, wnl on 08/01/19. asymptomatic, not on medications Subjective <Pablo Burrell MD - Last Filed: 03/09/20 07:36> Pain controlled. iuprofen 600 x1 provided relief. Some lower abd cramping. 3- 4/10. moderate lochia. +amb. eating/drinking, voiding ok. no calf ttp. . Ok w/ home today depending on baby testing. Review of Systems Denies fever, chills, sweats Denies shortness of breath, difficulty breathing, chest pain, palpitations, chest pressure. Denies breast pain. Denies dysuria. Denies headache or changes in vision. Denies nausea/vomiting. Denies numbness, tingling, weakness. Physical Exam <Pablo Burrell MD - Last Filed: 03/09/20 07:36> General: Alert, oriented. No acute distress. Cardiac: Regular rate and rhythm, no murmurs/rubs/gallops. Respiratory: Clear to auscultation. no wheezes/rales/rhonchi. No increased work of breathing. Symmetrical chest rise. No respiratory distress. Abdomen: Soft, nontender, nondistended. Uterus: Uterine fundus firm, palpable at umbilicus. Lower Extremities: 1+ le edema. No deep calf pain. Jeff's negative bilaterally. Results & Data ([facility]) <Pablo Burrell MD - Last Filed: 03/09/20 07:36> Vital Signs (Past 12 Hours) Vital Signs Temp Pulse Pulse Resp BP BP 03/09/20 04:00 37 C 61 18 98/61 L 03/08/20 22:40 36.8 C 58 L 18 105/70 03/08/20 21:38 37.0 C 18 03/08/20 21:28 89 132/70 03/08/20 21:13 90 100/58 L 03/08/20 20:58 85 16 98/52 L 03/08/20 20:43 88 106/56 L 03/08/20 20:29 86 16 108/52 L 03/08/20 20:13 60 18 104/62 03/08/20 19:58 52 L 16 102/60 03/08/20 19:43 67 18 114/55 L 03/08/20 19:26 37.0 C 74 18 111/56 L <Chiki Davis MD - Last Filed: 03/09/20 08:55> Co-Signing Physician Notes Patient seen and evaluated with resident and agree with the above findings and plan. Routine care. Stable for discharge late afternoon today
[2020-03-09] MEDS ORDERED: PRENATAL VITAMIN 1 TAB PO SCH (08:00)
[2020-03-09] MEDS ORDERED: FERROUS SULFATE 325 MG TAB PO SCH (08:00)
[2020-03-09] MEDS: IBUPROFEN 600 MG TAB PO PRN ×2 (08:15→19:31)
[2020-03-09] MEDS: DOCUSATE SODIUM 100 MG CAP PO SCH (08:48)
[2020-03-09] MEDS ORDERED: bisacodyL 5 MG TABEC PO SCH (20:00)
--- NOTE | 2020-03-11 07:59 | Delivery Summary ---
DATE OF OPERATION: 03/08/2020 PROCEDURE: Normal spontaneous vaginal delivery with periurethral laceration repair. SURGEON: Chiki Davis MD PREOPERATIVE DIAGNOSES: 1. Single intrauterine at 41 weeks 2 days gestational age. 2. Rh negative. POSTOPERATIVE DIAGNOSES 1. Single intrauterine at 41 weeks 2 days gestational age. 2. Rh negative. 3. Status post delivery. ESTIMATED BLOOD LOSS: 400 mL. DRAINS: Straight cath at the completion of the case. URINE OUTPUT: Approximately 300 mL via Flores catheter. COMPLICATIONS: None. FINDINGS: Viable female with weight pending, Apgars of 4 and 8 at 1 and 5 minutes respectively. HOSPITAL COURSE: The patient was admitted for induction of labor at 41 weeks 2 days gestational age. At first evaluation, she was found to be 2-3 cm dilated and was started on oxytocin per regular protocol. She later underwent artificial rupture of membranes for clear fluid and progressed in labor to complete-complete +2 station, at which time she felt a strong urge to push and pushed for approximately 3 contractions to achieve delivery. DESCRIPTION OF PROCEDURE: The patient progressed to 10 cm dilated, 100% effaced, +2 station, pushed over intact perineum without anesthesia and delivered a viable female infant with weight and Apgars as noted above. Head of the delivered in ALEXANDRU position, rest into right transverse. No nuchal cord was noted. Body and shoulders did quickly follow and was noted to be floppy upon delivery. The cord was quickly double clamped and cut and was taken to the waiting nursery staff for further evaluation and resuscitation. Cord segment and cord blood were then obtained. Attention was then turned to deliver the placenta, which was delivered with an intact 3-vessel cord, gentle cord traction. On inspection of perineum, vagina, and cervix, there was noted to be a periurethral laceration, it was repaired with 3-0 Vicryl in interrupted stitch. Needle, sponge and instrument counts were correct at the completion of the case with mother and stable in immediate post-delivery period. I attest to the content of the Intraoperative Record and any orders documented therein. Any exception s are noted below.
== END 2020-03-09 20:30 | disposition home or self-care (01) | DRG 806 ==
LOC: 4S1 11:28 → 4S2 22:00

== ENCOUNTER 2024-01-24 19:34 | Inpatient (IN) ==
[2024-01-24] MEDS ORDERED: OXYTOCIN 30 UNITS/NSS 30 UNITS/500 ML BAG IV PRN (20:09)
[2024-01-24] MEDS ORDERED: LIDOCAINE 1% LOCAL 20 ML VIAL INFIL PRN (20:09)
[2024-01-24] MEDS ORDERED: CALCIUM CARBONATE 500 MG CHEWABLE TAB PO PRN (20:09)
--- NOTE | 2024-01-24 20:11 | History & Physical Report ---
Date of Service January 24, 2024 Assessment & Plan (1) Normal labor: (2) GBS bacteriuria: (3) Need for rhogam due to Rh negative mother: Plan admit, iv, labs. pcn for gbs, arom when appropriate. fhts categ 1. epidural if desires. History of Present Illness Chief Complaint: labor Primary Care Provider: Baylee Falcon MD 33yo at 40+wks stacie presents to in labor. She notes ctx began and now closer at about 3min apart, some coupling. No rom. No vb. +FM. PNC c/b 1. GBS pos 2. RH neg PNL rh neg, ri, gbs pos OBH: x 2 GYNH: nl paps, no stds. Allergies Allergy/AdvReac Type Severity Reaction Status Date / Time No Known Drug Allergies Allergy none Verified 01/24/24 09:59 Home Medications Medication Instructions Recorded Confirmed Type [id number] 1 cap PO DAILY 06/02/23 01/24/24 History [] Patient History Medical History (Updated 01/24/24 @ 20:13 by Brenda Walker MD, FACOG) Post-dates History of chicken pox Vaginal ulcer Non-toxic multinodular goiter History of Shalom thyroiditis Surgical History S/P tooth extraction Family History Grandmother (Maternal) Diabetes Grandfather (Maternal) Amyotrophic lateral sclerosis Aunt Multiple sclerosis Father Prostate cancer Other Esophageal reflux Denies family history of Ovarian cancer Breast cancer Colorectal cancer Social History Smoking Status: Never smoker Second Hand Exposure: No; Do You Dip or Chew Tobacco: No; Hx Alcohol Use: No Hx Substance Use: No Preferred Language: Afghan Communication Ability: Effective Lithographic Proofer Required: No Beliefs That Will Affect Care: None marital status: marital status details: Remy Johnson (34) [phone] Current Living Situation: Spouse Current Living Situation Comment: and 2 children current occupational status: employed current occupation: [employer] job titles Feels Safe at Home: Yes Childhood Exposure to Second-Hand Smoke: No Diet: regular caffeine: Yes Dental Care, Regularly: Yes Physical Activity Frequency: Does not Exercise Seatbelt Use: always Sunscreen Use: Yes Assistive Devices: None Review of Systems as per Subjective / HPI Physical Exam Constitutional: WD/WN, vitals as above Respiratory: normal respiratory effort, lungs clear to auscultation Cardiovascular: Rate/Rhythm: regular rate and regular rhythm Gastrointestinal (Abdomen): soft gravid nt efw 8-9# Musculoskeletal: no edema nontender calves Neurologic: grossly normal Psychiatric: A+Ox3, euthymic affect Genitourinary: Manual OB Exam: + cervical dilation 5 cm, + cervical effacement 80% and + station -2 OB Exam Monitor Tracing: + external FHT monitor used, + external uterine monitor used (q3-5), + category I and + normal FHT variability Results & Data Vital Signs (Past 12 Hours) Vital Signs Pulse BP 01/24/24 19:53 80 112/76 Coding Level of Care Code None Diagnoses Normal labor O80; Z37.9 GBS bacteriuria R82.71 Need for rhogam due to Rh negative mother Z29.13
[2024-01-24] MEDS: PENICILLIN GK 6 MU in DEXTROSE 5% 250 ML IV ONE (20:42)
[2024-01-24] MEDS: LACTATED RINGER'S 1,000 ML IV PRN (20:42)
[2024-01-24] MEDS: OXYTOCIN 30 UNITS/NSS 30 UNITS/500 ML BAG IV PRN (21:17)
[2024-01-24 21:22] LABS: Hematocrit (blood only) 38.1 % (37.0-47.0); Hemoglobin 13.2 g/dl (12.0-16.0); Mean Corpuscular Hemoglobin 33.3 pg (25.0-34.0); Mean Corpuscular Hgb Conc 34.6 g/dL (32.0-36.0); Mean Corpuscular Volume 96.2 fL (80.0-100.0); Mean Platelet Volume 11.5 fL (9.4-12.4); Platelet Count 140 K/uL (130-400); RDW Coefficient of Variation 13.3 % (11.5-14.5); Red Blood Count 3.96 M/uL (4.20-5.40); White Blood Count 13.16 K/ul (4.8-10.8)
[2024-01-24] MEDS ORDERED: oxyCODONE/ACETAMINOPHEN 5mg/325mg TAB PO PRN (21:27)
[2024-01-24] MEDS ORDERED: HYDROCORTISONE ACETATE 25 MG SUPP PR PRN (21:27)
--- NOTE | 2024-01-24 21:27 | Delivery Summary ---
Vaginal Delivery Summary Date of Service January 24, 2024 Vaginal Delivery Summary The patient dilated to complete and pushed to deliver a viable female infant Apgars 8 and 9 via over intact perineum. Mouth and nose bulb suctioned at perineum. Shoulders and body delivered with ease. Infant was vigorous and crying at . Cord clamped at 30 seconds of life and infant to maternal abdomen where the cord was then doubly clamped and cut. Placenta delivered spontaneously and intact, three-vessel cord. Hemostasis achieved with dilute pitocin and uterine massage. Cervix and sulci intact. QBL 50 cc. Mother and baby stable in recovery. [facility] Vaginal Delivery Charge Delivery Type Details:
[2024-01-24] MEDS: DIPHTHER/TETAN/PERTUS Vaccine (Tdap, Adol/Adult) 0.5mL IM ONE (21:44)
[2024-01-24] MEDS: ACETAMINOPHEN 325 MG TAB PO PRN (21:45)
[2024-01-24] MEDS: BENZOCAINE 20% SPRY 85 APPLN/85 GM CAN EXT PRN (21:47)
[2024-01-24] MEDS: OXYTOCIN 20 UNITS/LR 1,002 ML IV SCH (22:11)
[2024-01-24] MEDS ORDERED: PENICILLIN GK 3 MU in DEXTROSE 5% 100 ML IV PRN (23:09)
[2024-01-25] MEDS: IBUPROFEN 600 MG TAB PO PRN (02:17)
--- NOTE | 2024-01-25 06:21 | Obstetrical Progress Note ---
Date of Service <Jerrell Garcia DO - Last Filed: 01/25/24 08:02> January 25, 2024 Assessment & Plan <Jerrell Garcia DO - Last Filed: 01/25/24 08:02> (1) Encounter for assessment: Patient is PPD 1 s/p and doing well - Eating well, voiding well, ambulating well - vitals reviewed and within normal limits - pain well controlled with analgesics - OOB, ambulation, diet progression as tolerated - Blood type: O-, GBS pos, rubella immune - Plan to discharge tomorrow - After discharge, 6 week follow up with OB visit type: exam and care immediately after delivery Qualified Code(s): Z39.0 - Encounter for care and examination of mother immediately after delivery <Brenda Walker MD, FACOG - Last Filed: 01/25/24 08:16> (1) Encounter for assessment: Subjective <Jerrell Garcia DO - Last Filed: 01/25/24 08:02> 33 yo post- day 1 s/p Ambulation: ambulating normally Voiding: no voiding problems Passing Gas:: Yes Diet Tolerance:: regular diet Lochia:: Small Feeding Type:: breast feeding Current Pain Level: 2-3/10 Resting comfortably this AM in NAD. Denies NICOLE, CP, SOB, N/V/D, LE pain/swelling. Physical Exam <Jerrell Garcia DO - Last Filed: 01/25/24 08:02> General: patient resting comfortably, NAD, non-toxic in appearance, answers questions appropriately. Skin: warm, dry, intact HEENT: NC/AT, anicteric sclera, conjunctiva without injection, moist mucus membranes. Heart: +S1/S2, regular, no m/r/g Lungs: equal air entry bilaterally, no rales/rhonchi/wheezes Abd: +BS, soft, NT/ND, uterine fundus firm at umbilicus Ext: warm, no clubbing/cyanosis or edema, Jeff's neg. Neuro: nonfocal, speech intact, no facial droop, moving all extremities. Results & Data <Jerrell Garcia DO - Last Filed: 01/25/24 08:02> Vital Signs (Past 12 Hours) Vital Signs Temp Pulse Pulse Resp BP BP Pulse Ox 01/25/24 04:45 36.8 C 61 18 101/66 97 01/25/24 00:10 36.7 C 61 18 107/63 98 01/24/24 22:54 54 L 01/24/24 22:54 106/66 01/24/24 22:26 81 01/24/24 22:26 103/67 01/24/24 21:46 76 01/24/24 21:46 96/60 L 01/24/24 21:36 88 01/24/24 21:36 153/100 H 01/24/24 21:25 80 01/24/24 21:25 119/61 01/24/24 21:18 84 01/24/24 21:18 121/56 L 01/24/24 19:53 80 112/76 01/24/24 19:46 36.9 C 18 O2 Del Method 01/25/24 04:45 Room Air 01/25/24 00:10 Room Air 01/24/24 22:54 01/24/24 22:54 01/24/24 22:26 01/24/24 22:26 01/24/24 21:46 01/24/24 21:46 01/24/24 21:36 01/24/24 21:36 01/24/24 21:25 01/24/24 21:25 01/24/24 21:18 01/24/24 21:18 01/24/24 19:53 01/24/24 19:46 Supervising Physician <Brenda Walker MD, FACOG - Last Filed: 01/25/24 08:16> Co-Signing Physician Notes Resident Physician Supervision Note: I was present with Dr. Garcia during the history and exam. I discussed the case with the resident and agree with the findings and plan as documented in the note. Any exceptions or clarifications are listed here: pt doing well, eating, voiding, ambulating, pain well controlled. breast feeding. abd soft ff 2 down nt, ext nt calves. ppd #1 s/p , doing well routine care. may opt to go home after 24hr but that would be late tonight. she will consider. instructions will therefore be reviewed by Dr. Garcia with pt. breast/rh neg, needs rhogam/RI. Documented By: Brenda Walker MD, FACOG Resident Activity Tracking <Jerrell Garcia, DO - Last Filed: 01/25/24 08:02> Resident Involvement: Resident Care Provided Care Provided: OB Delivery
[2024-01-25] MEDS: DOCUSATE SODIUM 100 MG CAP PO SCH (08:56)
[2024-01-25] MEDS: PRENATAL VITAMIN 1 TAB PO SCH (08:56)
[2024-01-25] MEDS: bisacodyL 5 MG TABEC PO SCH (20:06)
--- NOTE | 2024-01-26 05:50 | Obstetrical Progress Note ---
Date of Service <Jerrell Garcia DO - Last Filed: 01/26/24 06:19> January 26, 2024 Assessment & Plan <Jerrell Garcia DO - Last Filed: 01/26/24 06:19> (1) Encounter for assessment: Patient is PPD 2 s/p and doing well - Eating well, voiding well, ambulating well - vitals reviewed and within normal limits - pain well controlled with analgesics - OOB, ambulation, diet progression as tolerated - Blood type: O-, GBS pos, rubella immune - Plan to discharge today - After discharge, 6 week follow up with OB visit type: exam and care immediately after delivery Qualified Code(s): Z39.0 - Encounter for care and examination of mother immediately after delivery <Meg Hall, - Last Filed: 01/26/24 06:56> (1) Encounter for assessment: Subjective <Jerrell Garcia DO - Last Filed: 01/26/24 06:19> 33 yo post- day 2 s/p Ambulation: ambulating normally Voiding: no voiding problems Passing Gas:: Yes Diet Tolerance:: regular diet Lochia:: Small Feeding Type:: breast feeding Current Pain Level: 0/10 Resting comfortably this AM in NAD. Denies NICOLE, CP, SOB, N/V/D, LE pain/swelling. Physical Exam <Jerrell Garcia DO - Last Filed: 01/26/24 06:19> General: patient resting comfortably, NAD, non-toxic in appearance, answers questions appropriately. Skin: warm, dry, intact HEENT: NC/AT, anicteric sclera, conjunctiva without injection, moist mucus membranes. Heart: +S1/S2, regular, no m/r/g Lungs: equal air entry bilaterally, no rales/rhonchi/wheezes Abd: +BS, soft, NT/ND, uterine fundus firm at umbilicus Ext: warm, no clubbing/cyanosis or edema, Jeff's neg. Neuro: nonfocal, speech intact, no facial droop, moving all extremities. Results & Data <Jerrell Garcia DO - Last Filed: 01/26/24 06:19> Vital Signs (Past 12 Hours) Vital Signs Temp Pulse Resp BP Pulse Ox O2 Del Method 01/26/24 00:30 36.7 C 72 16 98/59 L 97 Room Air 01/25/24 19:50 36.3 C L 68 16 101/63 99 Room Air Supervising Physician <Meg Hall DO - Last Filed: 01/26/24 06:56> Co-Signing Physician Notes Resident Physician Supervision Note: I interviewed and examined the patient. Discussed with Dr. Garcia and agree with findings and plan as documented in the note. Any exceptions or clarifications are listed here: PPD#2 doing well, DC instructions reviewed. Documented By: Meg Hall DO Resident Activity Tracking <Jerrell Garcia DO - Last Filed: 01/26/24 06:19> Resident Involvement: Resident Care Provided Care Provided: OB Delivery
== END 2024-01-26 10:30 | disposition home or self-care (01) | DRG 807 ==
LOC: OPB 19:34 → 4S1 19:35 → 4E2 01-25 00:30